=== PATIENT | male | born 1970 | race African-American/Black ===

== ENCOUNTER 2016-10-30 17:14 | Emergency (ER) | payer SELFPAY ==
[~2016-10-30] VITALS: Ht 180.3 cm; Wt 76.3 kg
[~2016-10-30 17:14] MED LIST: ONDA4TAB7 PO
[2016-10-30] MEDS ORDERED: OMNIPAQUE 350 MG/ML, 100ML BOTTLE ONE (18:46)
[2016-10-30 19:22] LABS: HEMOGLOBIN 15.2 g/dL (13.7-18.0)
[2016-10-30 19:27] LABS: BLOOD UREA NITROGEN 10 mg/dL (7-18)
[2016-10-30 20:37] VITALS: BP 125/87
== END 2016-10-30 20:39 | disposition home or self-care (01) ==
LOC: ED 19:03
DX: L03.317 Cellulitis of buttock (principal)
CPT/HCPCS: 36415; 72193; 80048; 82040; 85025; 99285; Q9967